=== PATIENT | female | born 1995 | race Caucasian/White ===

== ENCOUNTER 2022-04-10 12:00 | Outpatient (CLI) | payer BC, SELFPAY ==
[2022-04-10 21:46] LABS: HCG Qualitative Serum* Negative (Negative)
== END 2022-04-10 12:01 | disposition home or self-care (01) ==
PROVIDERS: PCP Family Medicine; Visit Provider Family Medicine
DX: N91.2 Amenorrhea, unspecified (principal); R53.83 Other fatigue; R63.6 Underweight
CPT/HCPCS: 84443; 84703

== ENCOUNTER 2022-05-10 08:01 | Emergency (ER) | payer BC, SELFPAY ==
[2022-05-10 08:04] VITALS: BP 131/83; PULSE 90; RESP 18; TEMP 37.2; O2SAT 99; BMI 17.9
--- NOTE | 2022-05-10 08:27 | ED_ITS ---
HPI - General Adult General Chief complaint: Dental/Oral/Mouth Injury/Pain Stated complaint: Possible tooth infected Time Seen by Provider: 05/10/22 08:02 History of Present Illness HPI narrative: This is a 26-year-old female who had her lower tooth pulled couple days ago. She presents with some pain in that area now and low bit of bruising on her cheek, she has had some pain into her neck region as well no other specific complaints PE were. No fever, able to swallow. She is in good state of health. Denies . She just had a test. Related Data Previous Rx's Medication Instructions Recorded cephalexin 500 mg capsule 500 mg PO BID 7 days #14 caps 05/10/22 ketorolac 10 mg tablet 10 mg PO Q8H PRN pain #7 tabs 05/10/22 Allergies Allergy/AdvReac Type Severity Reaction Status Date / Time seasonal allergies (fall) Allergy Intermediate Congested Uncoded 04/10/22 11:38 Review of Systems Status of ROS: Reports: 6 or more systems reviewed and unremarkable except as noted in History and below [facility] Medical History Alcoholic intoxication Premature delivery Social History Smoking Status: Former smoker Do you use any of these nicotine containing products: None Second hand tobacco smoke exposure: No How often do you have a drink containing alcohol: monthly or less How many standard drinks containing alcohol do you have on a typical day: 1 or 2 AUDIT-C Alcohol total score: 1 Non-prescribed substance use: denies use Exam Narrative: Exam Narrative: Objective: Vital signs unremarkable Patient is in no apparent distress Mouth exam shows some mild redness around pulled tooth in the left lower posterior gumline No palpable neck swelling or crepitus Const: Vital Signs, click to edit/add: Vital Signs - 24 hr 05/10/22 08:04 Temperature 98.9 F Pulse Rate [Pulse Oximeter] 90 Respiratory Rate 18 Blood Pressure [Ri ght Upper Arm] 131/83 Pulse Oximetry 99 Course Vital Signs Vital signs: Initial Vital Signs Temperature 98.9 F 05/10/22 08:04 Temperature Source Temporal Artery Scan 05/10/22 08:04 Pulse Rate 90 05/10/22 08:04 Respiratory Rate 18 05/10/22 08:04 Blood Pressure 131/83 05/10/22 08:04 Blood Pressure Mean 99 05/10/22 08:04 Blood Pressure Position Sitting 05/10/22 08:04 Pulse Oximetry 99 05/10/22 08:04 Vital Signs Temperature 98.9 F 05/10/22 08:04 Pulse Rate 90 05/10/22 08:04 Respiratory Rate 18 05/10/22 08:04 Blood Pressure 131/83 05/10/22 08:04 Pulse Oximetry 99 05/10/22 08:04 Temperature 98.9 F 05/10/22 08:04 Pulse Rate 90 05/10/22 08:04 Respiratory Rate 18 05/10/22 08:04 Blood Pressure 131/83 05/10/22 08:04 Pulse Oximetry 99 05/10/22 08:04 Medical Decision Making MDM Narrative Medical decision making narrative: tiekaren is 2 days status post dental extraction. Rule out infection. Patient has been taking some Tylenol. Will give her a Toradol orally now as well as Keflex, will call in a couple 6 Toradol and some Keflex for the next 7 days. Follow up with Dentistry not improving the next 48 hours certainly sooner change concerns worsening return. Discharge Plan Discharge Clinical Impression: Dental infection Patient Disposition: Home, Self-Care Condition: Stable Additional Instructions: Toradol as needed, maybe use Tylenol with this, do not use ibuprofen or Aleve or aspirin with the Toradol. Keflex 500 b.i.d. x7 days. Update dentist in the next 48 hours. Return as needed. May put some ice on the cheek as well Activity Level: Light activity Prescriptions: New ketorolac 10 mg tablet 10 mg PO Q8H PRN (Reason: pain) Qty: 7 0RF cephalexin 500 mg capsule 500 mg PO BID 7 Days Qty: 14 0RF Follow Up/Referrals: Gregorio Boykin MD [Primary Care Provider] - Stand Alone Forms: [employer] Info Instructions
[2022-05-10] MEDS: cephALEXin 500 MG CAPSULE PO (08:42)
[2022-05-10] MEDS: KETOROLAC 10 MG TABLET PO (08:42)
== END 2022-05-10 08:51 | disposition home or self-care (01) ==
LOC: ED 08:51
PROVIDERS: Emergency Provider Family Medicine
DX: K04.7 Periapical abscess without sinus (principal)
CPT/HCPCS: 99282; 99283; A9270

== ENCOUNTER 2023-08-02 14:10 | Emergency (ER) | payer BC, SELFPAY ==
[2023-08-02 14:18] VITALS: BP 107/69; PULSE 84; RESP 18; TEMP 36.8; O2SAT 98; BMI 17.4
--- NOTE | 2023-08-02 14:32 | ED.GENADULT ---
HPI - General Adult General Chief complaint: Urogenital Problems, Female Stated complaint: Possible UTI Time Seen by Provider: 08/02/23 14:19 History of Present Illness HPI narrative: This 27-year-old female comes in reporting dysuria symptoms for the past 3 or 4 days. She states that she has been having urinary tract infections on occasion since having her child. She states that she typically takes cranberry juice and drinks extra fluid and has also been using azo. She did the same today but her symptoms returned yesterday and today. She does not report any fevers or flank pain. Related Data Home Medications ?Medication ?Instructions ?Recorded ?Confirmed acetaminophen 500 mg tablet 500 mg PO Q6H PRN 05/13/22 05/13/22 (Tylenol Extra Strength) ibuprofen 600 mg tablet mg PO PRN 05/13/22 05/13/22 Previous Rx's ?Medication ?Instructions ?Recorded cephalexin 500 mg capsule 500 mg PO TID 5 days #15 caps 08/02/23 Allergies Allergy/AdvReac Type Severity Reaction Status Date / Time seasonal allergies (fall) Allergy Intermediate Congested Uncoded 08/26/22 16:33 Review of Systems Status of ROS: Reports: 10 or more systems reviewed and unremarkable except as noted in History and below Narrative: Constitutional: No fevers, no weight gain or loss. Eyes: No discharge. No vision changes. HENT: No congestion, no sore throat, no ear pain. Cardiovascular: No chest pain, no palpitations. Respiratory: No shortness of breath, no wheezes, no cough. Gastrointestinal: No abdominal pain, no vomiting, no diarrhea. Genitourinary: Pain with voiding urine and increased frequency. She noted some small amount of blood when wiping today. Musculoskeletal: Normal range of motion. Skin: No rashes, no pruritis. Neurological: No dizziness, weakness, sensory change, speech change. Endo/Heme/Allergies: No bruising or bleeding. No polydipsia. Pysch: no suicidality, no anxiety, no insomnia. All other systems reviewed and are negative. [facility] Medical History (Updated 08/02/23 @ 15:13 by Carlos Martin MD) Ceruminosis ?H61.20 - Impacted cerumen, unspecified ear (ICD-10) Premature delivery ?O60.10X0 - labor with delivery, unspecified trimester, not applicable or unspecified (ICD-10) Alcoholic intoxication ?F10.929 - Alcohol use, unspecified with intoxication, unspecified (ICD-10) Social History Smoking Status: Former smoker Do you use any of these nicotine containing products: None Second hand tobacco smoke exposure: No How often do you have a drink containing alcohol: monthly or less How many standard drinks containing alcohol do you have on a typical day: 1 or 2 AUDIT-C Alcohol total score: 1 Non-prescribed substance use: denies use Exam Narrative: Exam Narrative: Constitutional: Well-developed, well-nourished, no acute distress. HEENT: Normocephalic, atraumatic. Neck: Normal range of motion. Nontender. Supple. Heart: Intact distal pulses. Lungs: No chest discomfort. No wheezes, rhonchi, or rales. Abdomen: Nontender. Back: Normal range of motion. Extremities: Normal range of motion. No injury. Skin: Intact. No rash. Warm. No erythema or pallor. Neurologic: No altered sensation. No weakness. Alert and oriented. Psychiatric: No suicidality. No anxiety or depression. No insomnia. Nursing notes and vitals signs are reviewed. Const: Vital Signs, click to edit/add: Vital Signs - 24 hr 08/02/23 14:18 Temperature 98.3 F Pulse Rate [Pulse Oximeter] 84 Respiratory Rate 18 Blood Pressure [Ri ght Upper Arm] 107/69 Pulse Oximetry 98 Oxygen Delivery Me thod Room Air Course Vital Signs Vital signs: Initial Vital Signs Temperature 98.3 F 08/02/23 14:18 Temperature Source Temporal Artery Scan 08/02/23 14:18 Pulse Rate 84 08/02/23 14:18 Respiratory Rate 18 08/02/23 14:18 Blood Pressure 107/69 08/02/23 14:18 Blood Pressure Mean 81 08/02/23 14:18 Pulse Oximetry 98 08/02/23 14:18 Oxygen Delivery Method Room Air 08/02/23 14:18 Vital Signs Temperature 98.3 F 08/02/23 14:18 Pulse Rate 84 08/02/23 14:18 Respiratory Rate 18 08/02/23 14:18 Blood Pressure 107/69 08/02/23 14:18 Pulse Oximetry 98 08/02/23 14:18 Oxygen Delivery Method Room Air 08/02/23 14:18 Temperature 98.3 F 08/02/23 14:18 Pulse Rate 84 08/02/23 14:18 Respiratory Rate 18 08/02/23 14:18 Blood Pressure 107/69 08/02/23 14:18 Pulse Oximetry 98 08/02/23 14:18 Oxygen Delivery Method Room Air 08/02/23 14:18 Medical Decision Making MDM Narrative Medical decision making narrative: This patient comes in with dysuria symptoms and urinalysis does show evidence of infection. The patient has normal vital signs and is okay to be discharged home. A prescription for Keflex is provided. Lab Data Labs: Lab Results 08/02/23 Range/Units 14:27 Urine Color Yellow (Yellow) Urine Appearance Clear (Clear) Urine pH 5.5 (5.0-8.5) Ur Specific [place] >= 1.030 (1.000-1.030) Urine Protein Trace A (Negative) Urine Glucose (UA) Negative (Negative) Urine Ketones 1+ A (Negative) Urine Blood 1+ A (Negative) Urine Nitrite Negative (Negative) Urine Bilirubin Negative (Negative) Urine Urobilinogen 0.2 (0.2-1.0) Ur Leukocyte Esterase Trace A (Negative) Urine RBC 10-25 A (0-2) Urine WBC 10-25 A (0-5) Ur Squamous Epith Cells Moderate A (None-Few) Urine Bacteria Moderate A (None) Discharge Plan Discharge Clinical Impression: Urinary tract infection Patient Disposition: Home, Self-Care Condition: Stable Additional Instructions: Take medication as prescribed. Drink plenty of fluids. Follow up with MD return if worsening. Prescriptions: New cephalexin 500 mg capsule 500 mg PO TID 5 Days Qty: 15 0RF No Action ibuprofen 600 mg tablet PO PRN acetaminophen [Tylenol Extra Strength] 500 mg tablet 500 mg PO Q6H PRN Follow Up/Referrals: Anat Bess PA-C [Physician Air Antisubmarine Officer] - Stand Alone Forms: [employer] Info Instructions
[2023-08-02 14:36] LABS: Appearance Urine Clear (Clear); Bilirubin Urine Negative (Negative); Blood Urine 1+ (Negative); Color Urine Yellow (Yellow); Glucose Urine Negative (Negative); Ketones Urine 1+ (Negative); Leukocyte Esterase Urine Trace (Negative); Nitrite Urine Negative (Negative); Protein Urine Trace (Negative); Specific Gravity Urine >= 1.030 (1.000-1.030); Urobilinogen Urine 0.2 (0.2-1.0); pH Urine 5.5 (5.0-8.5)
--- OUTSIDE RECORDS SUMMARY | 2023-08-02 14:39 | XMS_ITS | Clinical Summary ---
Author Organization [employer] [facility] Address [place], [place] [address] Care Team Providers Care Internal Communications Writer Name Role Phone Clinic, [facility] Primary Care Provider Allergies No known active allergies Medications No known medications Active Problems Problem Noted Date Diagnosed Date Anemia of in third trimester 5 Supervision of normal first teen 08/31 Overview: G 1/0 Single and with boyfriend for 7 months Plans to deliver at [facility] Currently living with boyfriend and his parents Immunizations Name Administration Dates Next Due DTaP 10/08/2001,06/08/1997,04/07/1997 ,01/05/1997 Hepatitis B (Peds) 06/08/1997,01/05/1997, 997 Hepatitis B, Unspecified 06/08/1997,01/05/1997 Hib Conjugate, Unspecified 06/08/1997,04/07/1997 ,01/05/1997 Inactivated Polio Vaccine 10/08/2001,01/02/1998, 04/07/1997,01/05/1997 Influenza Virus, Unspecified 12/25/2014 Influenza, IIV3 (Age >=3 years) 04/20/2006 Influenza, IIV4 12/25/2014 MMR 02/26/2015,10/08/2001,01/02/1998 Oral Polio Vaccine 01/02/1998 Tdap 09/06/2016,12/25/2014,11/01/2009 Varicella Vaccine 11/01/2009,01/02/1998 Family History Medical History Relation Name Comments Good Health Father Good Health Mother Relation Name Status Comments Father Mother Social History Tobacco Use Types Packs/Day Years Used Date Smoking Tobacco: Former Smokeless Tobacco: Never Tobacco Cessation:Counseling Given: Yes Alcohol Use Standard Drinks/Week Comments No 0 (1 standard drink = 0.6 oz pur e alcohol) PHQ-2 Answer Date Recorded PHQ-2 Score 0 01/18/2019 Sex and Gender Information Value Date Recorded Sex Assigned at Not on file Gender Identity Not on file Sexual Orientation Not on file Obstetrics History Para Term AB IAB SAB Ectopic Multiple Livin g Live Births 1 1 1 0 0 0 0 0 0 1 1 Date Outcome GA Total Labor Labor/2nd/3rd Weight Sex Delivery Anes PTL Sheela A1 A5 Name Cl in 02/24 Term 37w 5d 3.15 kg (6 lb 15 oz) M Vag Epidu ral N Rebecca ng 7 9 Delivery Location:[facility] Last Filed Vital Signs Vital Sign Reading Time Taken Comments Blood Pressure 116/71 01/18/2019 9:49 AM [facility] Pulse 59 01/18/2019 9:49 AM [facility] Temperature 37.3 ??C (99.1 ??F) 01/18/2019 9:49 AM CS T Respiratory Rate 16 02/26/2015 7:50 AM [facility] Oxygen Saturation 98% 01/18/2019 9:49 AM [facility] Inhaled Oxygen Concentration - - Weight 43.5 kg (95 lb 12.8 oz) 01/18/2019 9:49 A M [facility] Height 163.6 cm (5' 4.41) 01/18/2019 9:49 AM CS T Body Mass Index 16.24 01/18/2019 9:49 AM [facility] Plan of Treatment Health Maintenance Due Date Last Done Comments HPV series for age 9-26 (1 - 3-dose series) 11/09/2011 Hepatitis C screening for ag e 18-79 2014 BMI (ht and wt on same day) for age 18+ 01/19/2020 01/18/2019 Depression screening for age 12+ 01/19/2020 01/18/2019 Pap test for age 21-65 01/20/2022 9, 01/20/2019 COVID-19 vaccine series ( season) 2022 Influenza for age 9-49 11/01/2023 5, 12/25/2014, 04/20/2006 Tetanus booster 09/06/2026 09/06/2016, 12/25/2014, 11/01/2009 HIV for age 15-65 Completed 08/22/2014 Tdap Completed 09/06/2016, 12/25/2014, 11/01/2009 Pneumococcal series for age 6-64 Aged Out No longer eligible b ased on patient's age to complete this topic Procedures Procedure Name Priority Date/Time Associated Diagnosis Comments TEXTILE MACHINE MECHANIC THIN PREP PAP SCREEN IMAGED Routine 01/20/2019 10:15 AM [facility] ANTI HIV 1/2 Routine 08/22/2014 3:23 PM CDT from Last 3 Months or Most Recently Relevant to Health Maintenance Results * TEXTILE MACHINE MECHANIC THIN PREP PAP SCREEN IMAGED (01/20/2019 10:15 AM [facility]) Case Report Gynecologic Cytology Report ? Case: [id number] ? Authorizing Provider: ??Gregorio Boykin MD ??Collected: ? 01/20/2019 1015 ? Ordering Location: ? [facility] ?Received: ?01/21/2019 0905 ? First Screen: ?Luis Enrique Lai ? Specimen: ?TEXTILE MACHINE MECHANIC ThinPrep Vial Screening, Cervical/Vaginal ? 02/01/2019 1:31 PM [facility] INTERPRETATI ON/RESULT NEGATIVE FOR INTRAEPITHELIAL LESION OR MALIGNANCY (NIL) (none) 02/01/2019 1:31 PM [facility] NISM(S) Shift in brennon suggestive of bacterial vaginosis 02/01/2019 1:31 PM [facility] SPECIMEN ADEQUACY Satisfactory for evaluation Endocervical component present 02/01/2019 1:31 PM [facility] HPV REQUEST HPV and PAP 02/01/2019 1:31 PM [facility] Date of LMP 01/15/2019 02/01/2019 1:31 PM [facility] Last Pap Result First Pap/Unknown 02/01/2019 1:31 PM [facility] Automated Review Failed 02/01/2019 1:31 PM [facility] Comment:Processing failed, m anual screening required. ThinPrep Imaging System, [employer] ANCILLARY TESTING TEXTILE MACHINE MECHANIC HPV Ordered, Please see separate report 02/01/2019 1:31 PM [facility] Note The pap test is a screening technique, not a diagnostic procedure. ??It is used primarily to screen for squamous cancers and precursor lesions. ??Published studies have shown that it is subject to both false negative and false positive results. ??The pap test should not be used as the sole means to diagnose or exclude pre-malignant and malignant lesions. Cytology is screened and interpreted at [facility] - [address], [place] [address] and [facility] - [address]; [place] [address] and [facility] - [address]; [place] [address] and [facility] [address]; [place] [address] 02/01/2019 1:31 PM [facility] Other (Cervical/Vagina l) 01/20/2019 10:15 AM [facility] 01/21/2019 9:05 AM [facility] Gregorio Boykin MD PATHOLOGY/CYTOLO GY [facility] [address] [place] [address], [place] * ANTI HIV 1/2 (08/22/2014 3:23 PM CDT) HIV-1/HIV-2 ANTIBODY Non-Reacti ve Non-Reacti ve 08/23/2014 1:42 PM CDT [facility] Blood specimen (specimen) BLOOD SPECIMEN / Unknown Butterfly / Unknown 08/22/2014 3:23 PM CDT 08/22/2014 3:23 PM CDT Narrative [facility] - 08/23/2014 1:42 PM CDT HIV-1 p24 and HIV-1/HIV-2 Ab not detected Paulina Dotson CNM SEND OUTS Performing Organization Address City/[facility]/ZIP Co de Phone Number [facility] [address] [place] [address], [place] from Last 3 Months or Most Recently Relevant to Health Maintenance Advance Directives * Full Code (Latest Code Status on File) Date Activated Date Inactivated Comments 02/24/2015 10:47 PM 02/26/2015 2:59 PM * Full Code Date Activated Date Inactivated Comments 02/24/2015 2:04 PM 02/24/2015 10:47 PM * Full Code Date Activated Date Inactivated Comments 02/24/2015 2:02 PM 02/24/2015 2:04 PM Care Teams Internal Communications Writer Relationship Specialty Start Date End Date [facility], [place] [address] [address] [place] [address] PCP - General 10/27/10
--- OUTSIDE RECORDS SUMMARY | 2023-08-02 14:39 | XMS_ITS | Referral Summary ---
Author Organization [facility] Address [address] [place] [address] Care Team Providers Care Explosive Operator Fuse Name Role Phone Clinic, [facility] Primary Care Provider Allergies Active Allergy Reactions Criticality Noted Date Comments Seasonal Allergies 09/04/2016 Medications No known medications Active Problems Problem Noted Date Diagnosed Date Indication for care in labor or delivery 017 Normal delivery 09/04/2016 Supervision of high-risk 08/26/2016 Nasal fracture 06/20/2013 Immunizations Name Administration Dates Next Due TDAP Vaccine (Adacel) 09/06/2016 Social History Tobacco Use Types Packs/Day Years Used Date Smoking Tobacco: Former Smokeless Tobacco: Former Quit: 02/29/2016 Tobacco Cessation:Counseling Given: No Alcohol Use Standard Drinks/Week Comments No 0 (1 standard drink = 0.6 oz pur e alcohol) Adolescent Education Answer Date Record ed Getting School Help Needed Not on file 12/14 Sex and Gender Information Value Date Recorded Sex Assigned at Not on file Gender Identity Not on file Sexual Orientation Not on file Last Filed Vital Signs Vital Sign Reading Time Taken Comments Blood Pressure 115/78 10/21/2022 1:00 PM CDT Pulse 82 10/21/2022 1:00 PM CDT Temperature 36.8 ??C (98.2 ??F) 10/21/2022 10:52 AM C DT Respiratory Rate 16 10/21/2022 12:43 PM CDT Oxygen Saturation 100% 10/21/2022 12:55 PM CDT Inhaled Oxygen Concentration - - Weight 49.9 kg (110 lb) 05/09/2017 12:00 PM KICK PRESS OPERATOR Height 167.6 cm (5' 6) 05/09/2017 12:00 PM KICK PRESS OPERATOR Body Mass Index 17.75 05/09/2017 12:00 PM KICK PRESS OPERATOR Plan of Treatment Not on file Care Teams Explosive Operator Fuse Relationship Specialty Start Date End Date Clinic, [address] [address] PCP - General 10/21/22
--- OUTSIDE RECORDS SUMMARY | 2023-08-02 14:39 | XMS_ITS | Clinical Summary ---
Author Organization [facility] Address [address] [place] [address] Care Team Providers Care Thoroughbred Horse Farm Manager Name Role Phone Clinic, [facility] Primary Care Provider Allergies Active Allergy Reactions [...] 49.9 kg (110 lb) 05/09/2017 12:00 PM POLICE WORKER Height 167.6 cm (5' 6) 05/09/2017 12:00 PM POLICE WORKER Body Mass Index 17.75 05/09/2017 12:00 PM POLICE WORKER Plan of Treatment Health Maintenance Due Date Last Done Comments ADVANCE CARE PLANNING 1996 ANNUAL REVIEW OF HM ORDERS 1996 YEARLY PREVENTIVE VISIT 1996 HIV SCREENING 11/09/2011 HPV IMMUNIZATION (1 - 3-dose series) 11/09/2011 HEPATITIS C SCREENING 2014 PAP 2017 COVID-19 Vaccine ( season) 2022 PHQ-2 (once per calendar year) 2023 INFLUENZA VACCINE (Season Ended) 2023 12/25/2014, 12/25/2014, 04/20/2006, Additional history exists DTAP/TDAP/TD IMMUNIZATION (9 - Td or Tdap) 09/18/2030 09/18/2020, 09/06/2016, 12/25/2014, Additional history exists HEPATITIS B IMMUNIZATION Completed 998, 06/08/1997, 06/08/1997, Additional history exists IPV IMMUNIZATION Completed 10/08/2001, 04/1997, 01/02/1998, Additional history exists MENINGITIS IMMUNIZATION Aged Out No l onger eligible based on patient's age to complete this topic Pneumococcal Vaccine: Pediatrics (0 to 5 Years) and At-Risk Patients (6 to 64 Years) Aged Out No longer eligible based on patient's age to complete this topic RSV MONOCLONAL ANTIBODY Aged Out No l onger eligible based on patient's age to complete this topic Care Teams Thoroughbred Horse Farm Manager Relationship Specialty Start Date End Date Clinic, [address] [address] PCP - General 10/21/22
[2023-08-02 15:06] LABS: Bacteria Urine Moderate; Squamous Epithelial Cell Urine Moderate (None-Few)
== END 2023-08-02 15:30 | disposition home or self-care (01) ==
PROVIDERS: Emergency Provider Emergency Medicine Emergency Medical Services
DX: N39.0 Urinary tract infection, site not specified (principal)
CPT/HCPCS: 81001; 87086; 99283; 99284